=== PATIENT | male | born 1945 | race Caucasian/White ===

== ENCOUNTER 2016-12-29 10:45 | Inpatient (IN) | payer MEDICARE, OTHER ==
[~2016-12-29 10:45] MED LIST: ASAB PO; ATV1 PO; NORCO1 TA1 PO; PRAVACHOL40 MG PO; PROVENTSOL INH; RANITIDINE300 MG PO; SINGULAIR1 PO; SPIRIVA INH; VENTOLIN HFA INH; ZYRTEC ALLGY10 MG PO
[2016-12-29] MEDS ORDERED: HEMOCYTE324 MG PO (15:55)
[2016-12-29] MEDS ORDERED: ETODOLAC500 MG PO (15:55)
[2016-12-29] MEDS ORDERED: ZOL100 PO (15:56)
[2017-05-26] MEDS ORDERED: ALBUTEROL0.083 % INH (17:04)
[2017-05-26] MEDS ORDERED: STIOLTO RESPIMAT4 GM INH (17:07)
[2017-05-26] MEDS ORDERED: SYMBICORT 160/41 INH INH (17:09)
[2017-05-26] MEDS ORDERED: DALIRESP500 MCG PO (17:10)
[2017-05-26] MEDS ORDERED: MULTIPLE VIT PO (17:11)
[2017-05-26] MEDS ORDERED: STOOL SOFTEN240 MG PO (17:11)
[2017-05-26] MEDS ORDERED: SINGULAIR1 PO (17:22)
[2017-05-29] MEDS ORDERED: PR12.5 PO (13:09)
[2017-05-29] MEDS ORDERED: PERCOCET 10/3251 TAB PO (13:09)
[2017-05-29] MEDS ORDERED: SEPTRA DS1 TAB PO (13:10)
== END 2016-12-29 22:46 | disposition home or self-care (01) | DRG 287 ==
LOC: CORLMH 10:45 → SSU1 14:56
PROC: 4A023N7 Measurement of Cardiac Sampling and Pressure, Left Heart, Percutaneous Approach (ICD-10-PCS; principal; 2016-12-29)
PROC: B2151ZZ Fluoroscopy of Left Heart using Low Osmolar Contrast (ICD-10-PCS; 2016-12-29)
PROC: B2111ZZ Fluoroscopy of Multiple Coronary Arteries using Low Osmolar Contrast (ICD-10-PCS; 2016-12-29)
DX: I25.10 Atherosclerotic heart disease of native coronary artery without angina pectoris (principal); I11.0 Hypertensive heart disease with heart failure; I50.9 Heart failure, unspecified; D64.9 Anemia, unspecified; J44.1 Chronic obstructive pulmonary disease with (acute) exacerbation; E78.00 Pure hypercholesterolemia, unspecified; Z85.46 Personal history of malignant neoplasm of prostate; Z95.2 Presence of prosthetic heart valve; Z79.01 Long term (current) use of anticoagulants; Z82.49 Family history of ischemic heart disease and other diseases of the circulatory system; Z87.891 Personal history of nicotine dependence
CPT/HCPCS: 93459; 94640; 99152; 99153; A9270-GY; C1769; C1887; C1894; J2250; J3010; Q9967